=== PATIENT | female | born 1970 | race Caucasian/White ===

== ENCOUNTER 2018-01-11 05:24 | Inpatient (IN) | payer BC ==
[~2018-01-11] VITALS: Ht 157.5 cm; Wt 93.2 kg
[2018-01-11] MEDS ORDERED: CYCL5TAB PO (06:18)
[2018-01-11] MEDS ORDERED: MELO7.5T31 PO (06:18)
[2018-01-11] MEDS ORDERED: HYDR-882 PO (06:18)
[2018-01-11] MEDS ORDERED: OMEP-110 PO (06:18)
[2018-01-11] MEDS ORDERED: HYDR200T72 PO (06:18)
[2018-01-11 06:19] VITALS: BP 138/78
[2018-01-11] MEDS ORDERED: LACTATED RINGERS 1,000 ML IV SCH (06:19)
[2018-01-11] MEDS ORDERED: BACITRACIN 50,000 UNIT ONE (07:07)
[2018-01-11] MEDS ORDERED: EPINEPHRINE 1 MG/ML, 1ML ONE (07:07)
[2018-01-11] MEDS ORDERED: BUPIVACAINE/PF 0.5% ONE (07:07)
[2018-01-11] MEDS ORDERED: THROMBIN 5,000 UNIT VIAL TP ONE (07:07)
[2018-01-11] MEDS ORDERED: LIDOCAINE GEL 2%, 5ML ONE (07:13)
[2018-01-11] MEDS ORDERED: MIDAZOLAM 1 MG/ML, 2ML ONE (07:15)
[2018-01-11] MEDS ORDERED: FENTANYL PF 250 MCG/5ML ONE (07:15)
[2018-01-11] MEDS ORDERED: FENTANYL PF 100 MCG/2ML ONE ×2 (07:15→09:31)
[2018-01-11] MEDS ORDERED: GABAPENTIN 300 MG CAPSULE ONE (07:23)
[2018-01-11] MEDS ORDERED: HYDROmorphone 1 MG/ML, 1ML IV PRN (07:30)
[2018-01-11] MEDS ORDERED: ACETAMINOPHEN 500 MG TABLET PO ONE (07:30)
[2018-01-11] MEDS ORDERED: PROMETHAZINE 25 MG/ML, 1ML IM PRN ×2 (07:30→12:30)
[2018-01-11] MEDS ORDERED: ONDANSETRON ODT 8 MG PO PRN (07:30)
[2018-01-11] MEDS ORDERED: DIAZEPAM 5 MG/ML, 2ML IVPush PRN (07:30)
[2018-01-11] MEDS ORDERED: DIPHENHYDRAMINE 50 MG/ML, 1ML IVPush PRN ×2 (07:30→12:30)
[2018-01-11] MEDS ORDERED: OXYcodone 5 MG/5 ML ORAL.SOL UDC PO PRN (07:30)
[2018-01-11] MEDS ORDERED: ALBUTEROL/IPRATROPIUM 2.5MG/0.5MG, 3 ML NPPB PRN (07:30)
[2018-01-11] MEDS ORDERED: FENTANYL PF 100 MCG/2ML IV PRN (07:30)
[2018-01-11] MEDS ORDERED: MIDAZOLAM 1 MG/ML, 2ML IV PRN (07:30)
[2018-01-11] MEDS ORDERED: LABETALOL 5MG/ML, 20ML IV PRN (07:30)
[2018-01-11] MEDS ORDERED: LORazepam 2 MG/ML, 1ML IVPush PRN (07:30)
[2018-01-11] MEDS ORDERED: hydrALAzine 20 MG/ML, 1ML IV PRN (07:30)
[2018-01-11] MEDS ORDERED: OxyconTIN ER 20 MG TAB.ER PO ONE (07:30)
[2018-01-11] MEDS ORDERED: DIAZEPAM 5 MG TABLET PO ONE (07:30)
[2018-01-11] MEDS ORDERED: EPHEDRINE 50 MG/ML, 1ML IM PRN (07:30)
[2018-01-11] MEDS ORDERED: ONDANSETRON ODT 8 MG PO ONE (07:30)
[2018-01-11] MEDS ORDERED: MEPERIDINE/PF 25MG/0.5ML IVPush PRN (07:30)
[2018-01-11] MEDS ORDERED: GABAPENTIN 400 MG CAPSULE PO ONE (07:30)
[2018-01-11] MEDS ORDERED: PROMETHAZINE 25 MG/ML, 1ML IV PRN (07:30)
[2018-01-11] MEDS ORDERED: CEFAZOLIN 1,000 MG ONE (08:10)
[2018-01-11] MEDS ORDERED: PROPOFOL 10 MG/ML, 20ML ONE (08:10)
[2018-01-11] MEDS ORDERED: DEXAMETHASONE 4 MG/ML, 1ML ONE (08:10)
[2018-01-11] MEDS ORDERED: MORPHINE SULFATE 4 MG/ML, 1ML ONE ×2 (09:31→09:48)
[2018-01-11] MEDS ORDERED: MEPERIDINE/PF 25MG/0.5ML ONE (09:32)
[2018-01-11] MEDS: MORPHINE SULFATE 4 MG/ML, 1ML IVPush PRN ×3 (09:38→10:15)
[2018-01-11] MEDS ORDERED: LORazepam 2 MG/ML, 1ML ONE (09:50)
[2018-01-11] MEDS ORDERED: DIPHENHYDRAMINE 50 MG/ML, 1ML IM PRN (12:30)
[2018-01-11] MEDS ORDERED: CYCLOBENZAPRINE 10 MG TABLET PO PRN (12:30)
[2018-01-11] MEDS ORDERED: HYDROmorphone 2MG TABLET PO PRN (12:30)
[2018-01-11] MEDS ORDERED: ONDANSETRON 2MG/ML, 2ML IV PRN (12:30)
[2018-01-11] MEDS ORDERED: MAGNESIUM HYDROXIDE 8%, 30ML UDC PO PRN (12:30)
[2018-01-11] MEDS ORDERED: HYDROcodone/APAP 5/325 TABLET PO PRN (12:30)
[2018-01-11] MEDS ORDERED: BISACODYL 10 MG SUPP PR PRN (12:30)
[2018-01-11] MEDS ORDERED: HYDROmorphone 2 MG/ML, 1ML IM PRN (12:30)
[2018-01-11] MEDS ORDERED: DIPHENHYDRAMINE 50 MG CAPSULE PO PRN (12:30)
[2018-01-11 14:14] VITALS: BP 125/67
[2018-01-11] MEDS: NS + 20MEQ KCL 1,000 ML IV SCH (14:22)
[2018-01-11] MEDS: CEFAZOLIN PMX 1GM/50ML 50 ML IVPB SCH (16:03)
[2018-01-11] MEDS ORDERED: SUCCINYLCHOLINE 20 MG/ML, 10ML ONE (16:09)
[2018-01-11] MEDS ORDERED: ONDANSETRON ODT 4 MG PO PRN (16:30)
[2018-01-11] MEDS ORDERED: ZOLPIDEM 5MG TABLET PO PRN (21:00)
[2018-01-11 21:26] VITALS: BP 116/66
[2018-01-11] MEDS: HYDROXYCHLOROQUINE 200 MG TABLET PO SCH (21:41)
[2018-01-12 00:38] VITALS: BP 122/65
[2018-01-12] MEDS: CEFAZOLIN PMX 1GM/50ML 50 ML IVPB SCH (00:48)
[2018-01-12] MEDS: NS + 20MEQ KCL 1,000 ML IV SCH (03:13)
[2018-01-12] MEDS: OXYcodone/APAP 5/325MG TABLET PO PRN ×3 (04:35→12:13)
[2018-01-12 06:53] VITALS: BP 121/81
[2018-01-12] MEDS ORDERED: OMEPRAZOLE 20 MG CAPSULE.DR PO SCH (07:30)
[2018-01-12] MEDS: HYDROXYCHLOROQUINE 200 MG TABLET PO SCH (08:22)
[2018-01-12] MEDS ORDERED: SENNA/DOCUSATE TABLET PO SCH (09:00)
[2018-01-12] MEDS ORDERED: CYCL-259 PO (13:32)
[2018-01-12] MEDS ORDERED: OXYC-302 PO (13:34)
== END 2018-01-12 14:00 | disposition home or self-care (01) | DRG 517 ==
LOC: OUT 05:24 → 4NOR 11:55 → OUT 12:00 → DCLOUNGE 01-12 13:22
PROVIDERS: ADMIT Neurological Surgery; ATTEND Neurological Surgery
PROC: 01NB0ZZ Release Lumbar Nerve, Open Approach (ICD-10-PCS; principal; 2018-01-11 07:30)
DX: M48.061 Spinal stenosis, lumbar region without neurogenic claudication (principal); M32.9 Systemic lupus erythematosus, unspecified; E78.00 Pure hypercholesterolemia, unspecified; M54.17 Radiculopathy, lumbosacral region; F17.210 Nicotine dependence, cigarettes, uncomplicated; K21.9 Gastro-esophageal reflux disease without esophagitis; Z90.49 Acquired absence of other specified parts of digestive tract; Z79.899 Other long term (current) drug therapy; Z82.61 Family history of arthritis; Z83.3 Family history of diabetes mellitus; Z84.1 Family history of disorders of kidney and ureter; Z80.6 Family history of leukemia
CPT/HCPCS: 72100; J0171; J0690; J1100; J2175; J2250; J2270; J2704; J3010; J3480; J3490; Q0162; J0330; J2060; J7120